=== PATIENT | female | born 1995 | race Caucasian/White ===

== ENCOUNTER 2019-12-30 16:02 | Emergency (ER) | payer BC ==
[~2019-12-30] VITALS: Ht 160 cm; Wt 54.4 kg
[2019-12-30] MEDS ORDERED: Omnipaque-300 100ml vial INJ PRN (16:15)
[2019-12-30] MEDS ORDERED: Ketorolac 30mg Inj IV ONE (16:15)
[2019-12-30 16:20] VITALS: BP 95/55
--- NOTE | 2019-12-30 16:23 | NUR ---
ED Nurse Note: Patient walked in to ER from home due to RLQ abd pain with nausea that radiates to her right groin x 1 week. Pt states diarrhea and constipation at same time. Patient stated was diagnosed with bipolar disorder, and prescribed meds. Patient AAO x4, VSS at this time.
--- NOTE | 2019-12-30 17:04 | Emergency Room Report ---
History of Present Illness General Chief Complaint: Abdominal Pain Source: Patient Present Illness HPI 24-year-old female with history of bipolar disorder currently on lamotrigine complaining of 1 week of right lower quadrant abdominal pain radiating to groin area with feeling nauseated however denies any vomiting. Reports that she used to take valproic acid in the past however was recently switched to lamotrigine and reports that it might be a side effect of her new medication. Patient reports that" about 1 week ago she felt like her pancreas and her liver were exploding because of the location of where it was hurting and she asked her doctor to change her medication to a new medication." Patient reports that she continues take lamotrigine. Denies headache and dizziness, chest pain, shortness of breath, fever and chills. Reports that she had little bit of diarrhea 1 week ago however that has resolved. Denies any bloody stool. Denies . Denies history of ovarian cyst or any dysfunctional uterine bleeding. Denies tobacco smoke, drug use, alcohol intake.Patient also reports to have some urinary frequency few days ago return urgent care has started taking ciprofloxacin x2 days. Denies hematuria. Allergies: Coded Allergies: AMOXICILLIN (Verified Allergy, Unknown, 12/30/19) COVID-19 Screening Contact w/high risk pt: No Experienced COVID-19 symptoms?: No COVID-19 Testing performed CHIEF CRUISER: No Patient History Past Medical History: see triage record Past Surgical History: none Pertinent Family History: none Last Menstrual Period: 11/11/19 Now: No - mens irregular Immunizations: UTD Reviewed Nursing Documentation: PMH: Agreed; PSxH: Agreed Nursing Documentation-PMH Past Medical History: No History, Except For Review of Systems All Other Systems: negative except mentioned in HPI Physical Exam Vital Signs Date Time Temp Pulse Resp B/P (MAP) Pulse Ox O2 Delivery O2 Flow Rate FiO2 12/30/19 16:08 98.8 89 18 95/55 (68) 96 Room Air Sp02 EP Interpretation: reviewed, normal General Appearance: no apparent distress, alert, GCS 15, non-toxic Head: normocephalic, atraumatic Eyes: bilateral eye normal inspection, bilateral eye PERRL ENT: hearing grossly normal, normal pharynx, no angioedema, normal voice Neck: full range of motion, supple/symm/no masses Respiratory: chest non-tender, lungs clear, normal breath sounds, speaking full sentences Cardiovascular #1: regular rate, rhythm, no edema Cardiovascular #2: 2+ carotid (R), 2+ carotid (L), 2+ radial (R), 2+ radial (L), 2+ dorsalis pedis (R), 2+ dorsalis pedis (L) Gastrointestinal: normal bowel sounds, non tender, soft, no mass, no organomegaly, no peritonitis, no bruit, non-distended, no guarding, no hernia, no pulsatile mass, no rebound, other - Negative McBurney's and Rovsing's, negative obturator and psoas Rectal: deferred Genitourinary: no CVA tenderness Musculoskeletal: back normal Neurologic: alert, motor strength/tone normal, oriented x3, sensory intact, responsive, speech normal Psychiatric: judgement/insight normal, memory normal, mood/affect normal, no suicidal/homicidal ideation Skin: no rash Lymphatic: no adenopathy Medical Decision Making PA Attestation All my diagnosis and treatment plans were reviewed ad discussed with my supervising physician Dr. Hutson Diagnostic Impression: Primary Impression: Appendicitis ER Course 24-year-old female with history of bipolar disorder currently on lamotrigine complaining of 1 week of right lower quadrant abdominal pain radiating to groin area with feeling nauseated however denies any vomiting. Reports that she used to take valproic acid in the past however was recently switched to lamotrigine and reports that it might be a side effect of her new medication. Patient reports that" about 1 week ago she felt like her pancreas and her liver were exploding because of the location of where it was hurting and she asked her doctor to change her medication to a new medication." Patient reports that she continues take lamotrigine. Denies headache and dizziness, chest pain, shortness of breath, fever and chills. Reports that she had little bit of diarrhea 1 week ago however that has resolved. Denies any bloody stool. Denies . Denies history of ovarian cyst or any dysfunctional uterine bleeding. Denies tobacco smoke, drug use, alcohol intake. Patient also reports to have some urinary frequency few days ago return urgent care has started taking ciprofloxacin x2 days. Denies hematuria. Ddx considered but are not limited to: appendicitis, cholecystis, gastritis, gastroenteritis, UTI, pyelonephritis, SBO, diverticulitis, influenza with GI manifestation, ruptured ovarian cyst, complication with Vital signs: are WNL, pt. is afebrile H&PE are most consistent with: possible appendicitis ORDERS: abdominal CT, abdominal pain set, EKG, zofran ED INTERVENTIONS: Toradol, Zofran, Pepcid, NS bolus CT scan read cannot distinguish between acute appendicitis of the radiologist calls with most likely not an appendicitis patient to be discharged home have a repeat CT scan pain in 2 days however she feels worse in the meantime return to the emergency room immediately. DISCHARGE: At this time pt. is stable for d/c to home. Will provide printed patient care instructions, and any necessary prescriptions. Care plan and follow up instructions have been discussed with the patient prior to discharge. Dr. Townsend was contacted and advised patient to follow-up with him tomorrow in office. EKG Diagnostic Results Rate: normal Rhythm: NSR ST Segments: no acute changes Other Impression No acute ST changes ASA given to the pt in ED: No CT/MRI/US Diagnostic Results CT/MRI/US Diagnostic Results : Imaging Test Ordered: CT abdomen pelvis with contrast Impression TECHNIQUE: Axial computed tomography images of the abdomen and pelvis with intravenous contrast. CTDI is 3.5 mGy and DLP is 175.5 mGy-cm. One or more of the following dose reduction techniques were used: automated exposure control, adjustment of the mA and/or kV according to patient size, use of iterative reconstruction technique. Coronal and sagittal reformatted images were created and reviewed. COMPARISON: No relevant prior studies available. FINDINGS: Lung bases: Unremarkable. No mass. No consolidation. ABDOMEN: Liver: Unremarkable. No mass. Gallbladder and bile ducts: Unremarkable. No calcified stones. No ductal dilation. Pancreas: Unremarkable. No mass. No ductal dilation. Spleen: Unremarkable. No splenomegaly. Adrenals: Unremarkable. No mass. Kidneys and ureters: Unremarkable. No solid mass. No hydronephrosis. Stomach and bowel: Prominent colonic stool burden could be incidental or could be a cause for pain. No obstruction. No mucosal thickening. PELVIS: Appendix: Appendix 0.6 cm diameter, with mild wall hyperemia without abscess, perforation, or appendicolith. Bladder: Unremarkable. No mass. Reproductive: Almost certainly benign left ovarian functional 3.2 cm follicular cyst requires no additional follow-up. ABDOMEN and PELVIS: Intraperitoneal space: Unremarkable. No free air. No significant fluid collection. Bones/joints: No acute fracture. No dislocation. Soft tissues: Unremarkable. Vasculature: Unremarkable. No abdominal aortic aneurysm. Lymph nodes: Unremarkable. No enlarged lymph nodes. IMPRESSION: 1. Normal caliber appendix with mild wall hyperemia of uncertain significance. This could represent normal appendiceal appearance, although in the setting of concerning findings for acute appendicitis, this could also represent early acute uncomplicated appendicitis. 2. Prominent colonic stool burden could be incidental or could be a cause for pain. 3. Otherwise no acute abnormality definitively identified to account for patient presentation. 4. Almost certainly benign left ovarian functional 3.2 cm follicular cyst requires no additional follow-up. Radiologist: Kike Watson MD Electronically Signed: 12/30/19 18:13 Last Vital Signs Date Time Temp Pulse Resp B/P (MAP) Pulse Ox O2 Delivery O2 Flow Rate FiO2 12/30/19 16:20 98.8 18 95/55 96 Room Air 12/30/19 16:20 89 Disposition: HOME, SELF-CARE Condition: Stable Scripts Ondansetron (Zofran) 4 Mg Tablet 4 MG ORAL Q6H PRN for Nausea & Vomiting, #14 TAB Prov: Gonzalo Morrow 12/30/19 Patient Instructions: Abdominal Pain, Adult Additional Instructions: CT scan read cannot distinguish between acute appendicitis of the radiologist calls with most likely not an appendicitis patient to be discharged home have a repeat CT scan pain in 2 days however she feels worse in the meantime return to the emergency room immediately. Gonzalo Morrow Dec 30, 2019 17:04
[2019-12-30 17:09] LABS: BASOPHILS % (AUTO) 1.1 % (0.0-2.0); EOSINOPHILS % (AUTO) 3.8 % (0.0-3.0); HEMATOCRIT 38.8 % (37.0-47.0); HEMOGLOBIN 13.1 G/DL (12.0-16.0); LYMPHOCYTES % (AUTO) 38.7 % (20.0-45.0); MEAN CORPUSCULAR VOLUME 85 FL (80-99); MONOCYTES % (AUTO) 7.3 % (1.0-10.0); PLATELET COUNT 211 K/UL (150-450); RED BLOOD COUNT 4.55 M/UL (4.20-5.40); RED CELL DISTRIBUTION WIDTH 12.3 % (11.6-14.8); WHITE BLOOD COUNT 5.7 K/UL (4.8-10.8)
--- NOTE | 2019-12-30 17:15 | NUR ---
ED Nurse Note: patient was taken to CT via wheelchair
[2019-12-30 17:22] LABS: ANION GAP 6 mmol/L (5-15); BLOOD UREA NITROGEN 9 mg/dL (7-18); CALCIUM 8.7 MG/DL (8.5-10.1); CARBON DIOXIDE 27 MMOL/L (21-32); CHLORIDE 107 MMOL/L (98-107); CREATININE 0.8 MG/DL (0.55-1.30); POTASSIUM 3.8 MMOL/L (3.5-5.1); SODIUM 140 MMOL/L (136-145)
[2019-12-30 17:24] LABS: APPEARANCE,URINE SLIGHTLY CLOUDY; BILIRUBIN, URINE NEGATIVE (NEGATIVE); COLOR,URINE AMBER; GLUCOSE, URINE (UA) NEGATIVE (NEGATIVE); KETONES,URINE 1+ (NEGATIVE); NITRITE,URINE NEGATIVE (NEGATIVE); PH,URINE 5 (4.5-8.0); PROTEIN,URINE 2+ (NEGATIVE); UROBILINOGEN,URINE 1 MG/DL (0.0-1.0)
[2019-12-30 17:26] LABS: ALANINE AMINOTRANSFERASE 17 U/L (12-78); ALBUMIN 3.7 G/DL (3.4-5.0); ALBUMIN/GLOBULIN RATIO 1.2 (1.0-2.7); ALKALINE PHOSPHATASE 52 U/L (46-116); ASPARTATE AMINO TRANSFERASE 20 U/L (15-37); BILIRUBIN,TOTAL 0.3 MG/DL (0.2-1.0)
[2019-12-30 17:50] LABS: LEUKOCYTE ESTERASE ,URINE 1+ (NEGATIVE)
--- NOTE | 2019-12-30 17:56 | NUR ---
ED Nurse Note: patient is back, VSS, NAD noted
--- NOTE | 2019-12-30 18:14 | Diagnostic Imaging Report ---
EXAM: CT Abdomen and Pelvis With Intravenous Contrast CLINICAL HISTORY: ABD PAIN TECHNIQUE: Axial computed tomography images of the abdomen and pelvis with intravenous contrast. CTDI is 3.5 mGy and DLP is 175.5 mGy-cm. One or more of the following dose reduction techniques were used: automated exposure control, adjustment of the mA and/or kV according to patient size, use of iterative reconstruction technique. Coronal and sagittal reformatted images were created and reviewed. COMPARISON: No relevant prior studies available. FINDINGS: Lung bases: Unremarkable. No mass. No consolidation. ABDOMEN: Liver: Unremarkable. No mass. Gallbladder and bile ducts: Unremarkable. No calcified stones. No ductal dilation. Pancreas: Unremarkable. No mass. No ductal dilation. Spleen: Unremarkable. No splenomegaly. Adrenals: Unremarkable. No mass. Kidneys and ureters: Unremarkable. No solid mass. No hydronephrosis. Stomach and bowel: Prominent colonic stool burden could be incidental or could be a cause for pain. No obstruction. No mucosal thickening. PELVIS: Appendix: Appendix 0.6 cm diameter, with mild wall hyperemia without abscess, perforation, or appendicolith. Bladder: Unremarkable. No mass. Reproductive: Almost certainly benign left ovarian functional 3.2 cm follicular cyst requires no additional follow-up. ABDOMEN and PELVIS: Intraperitoneal space: Unremarkable. No free air. No significant fluid collection. Bones/joints: No acute fracture. No dislocation. Soft tissues: Unremarkable. Vasculature: Unremarkable. No abdominal aortic aneurysm. Lymph nodes: Unremarkable. No enlarged lymph nodes. IMPRESSION: 1. Normal caliber appendix with mild wall hyperemia of uncertain significance. This could represent normal appendiceal appearance, although in the setting of concerning findings for acute appendicitis, this could also represent early acute uncomplicated appendicitis. 2. Prominent colonic stool burden could be incidental or could be a cause for pain. 3. Otherwise no acute abnormality definitively identified to account for patient presentation. 4. Almost certainly benign left ovarian functional 3.2 cm follicular cyst requires no additional follow-up. <MYCVCSECTION> Communications: 12/30/19 18:18 Call Doctor Regarding Appendicitis, called Haresh Anne MD on 12/29 18:18 (-08:00)
[2019-12-30] MEDS ORDERED: ZOFRAN4 M1 ORAL (18:25)
[2019-12-30 18:37] VITALS: BP 95/55
--- NOTE | 2019-12-30 18:38 | NUR ---
ER DISCHARGE NOTE: Patient is cleared to be discharged per ERMD, pt is aox4, on room air, with stable vital signs. pt was given dc and prescription instructions, pt was able to verbalize understanding, pt id band and iv site removed without complications. pt is able to ambulate with steady gait. pt took all belongings.
[2019-12-31] MEDS ORDERED: IBUPROFEN600 M1 ORAL (17:10)
[2019-12-31] MEDS ORDERED: KLONOPIN0.5 MG ORAL (17:15)
[2019-12-31] MEDS ORDERED: LAMICTAL25 MG ORAL (17:15)
[2019-12-31] MEDS ORDERED: CIPROFLOXACIN500 M2 ORAL (17:15)
== END 2019-12-30 18:37 | disposition home or self-care (01) ==
LOC: EMR 18:30
DX: K37 Unspecified appendicitis (principal); Z88.0 Allergy status to penicillin
CPT/HCPCS: 36415; 74177; 80053; 80307; 81003; 81025; 83690; 84484; 85025; 85610; 85730; 86850; 86900; 86901; 93005; 96361; 96374; 96375; 99284; J1885; J2405; J7030; Q9965

== ENCOUNTER 2019-12-31 14:39 | Emergency (ER) | payer BC ==
[~2019-12-31] VITALS: Ht 160 cm; Wt 54.4 kg
[~2019-12-31 14:39] MED LIST: ZOFRAN4 M1 ORAL
[2019-12-31 14:47] VITALS: BP 97/60
--- NOTE | 2019-12-31 14:57 | NUR ---
ED Nurse Note: Patient from home and walked in due to RLQ abd pain x 3 days. Patient was seen here yesterday and was diagnosed with appendicitis and was discharged. Patient came back to ED due to her abd pain getting worse. Pt is AAO x4, ambulatory with non labored breathing. Calm and cooperative.
--- NOTE | 2019-12-31 15:12 | Emergency Room Report ---
History of Present Illness General Chief Complaint: Abdominal Pain Source: Patient Present Illness HPI This patient's illness began a couple weeks ago when she was started on valproic acid for bipolar disorder. She woke up experiencing toxic effects. She fasted for 5 days after that. She was concerned about her liver and pancreas. Since Monday she has been having right lower quadrant pain. It is intermittent. She was seen and evaluated yesterday with a question of appendicitis on the CT scan. She was discharged to home and told to return on Monday if not better. She believes that she was told she has appendicitis. She been taking Tylenol and Advil intermittently. The pain is not constant. Right now she states it is 4/10. She has had intermittent bloating. The stomach is better today but yesterday it felt quite distended. She denies fevers and chills. She ate without difficulty. Patient denies dysuria. She states her last menstruation was 2 weeks ago and normal for her. She claims she is never been told she has ovarian cysts. She is moving her bowels. There is no diarrhea. She denies constipation. The patient has a history of bipolar disorder and PTSD. She denies suicidal or homicidal ideation. She is living with a roommate but the roommate left for Thanksgiving. Patient denies exposure to Covid positive contacts. No sore throat, chest pain, palpitations, shortness of breath, joint pain, rashes, dizziness, headache. This is the CT report from yesterday: 1. Normal caliber appendix with mild wall hyperemia of uncertain significance. This could represent normal appendiceal appearance, although in the setting of concerning findings for acute appendicitis, this could also represent early acute uncomplicated appendicitis. 2. Prominent colonic stool burden could be incidental or could be a cause for pain. 3. Otherwise no acute abnormality definitively identified to account for patient presentation. 4. Almost certainly benign left ovarian functional 3.2 cm follicular cyst requires no additional follow-up. Allergies: Coded Allergies: AMOXICILLIN (Verified Allergy, Unknown, 12/30/19) COVID-19 Screening Contact w/high risk pt: No Experienced COVID-19 symptoms?: No COVID-19 Testing performed REPORTER ANCHOR: No Patient History Past Medical History: see triage record, old chart reviewed, psych hx - Bipolar disorder/PTSD Social History: Denies: smoking, alcohol use, drug use Social History Narrative In [place] 1 month. Has roommate. Now: No Reviewed Nursing Documentation: PMH: Agreed; PSxH: Agreed Nursing Documentation-PMH Past Medical History: No History, Except For History Of Psychiatric Problem: Yes - bipolar Review of Systems All Other Systems: negative except mentioned in HPI Physical Exam Vital Signs Date Time Temp Pulse Resp B/P (MAP) Pulse Ox O2 Delivery O2 Flow Rate FiO2 12/31/19 14:47 98.2 66 17 97/60 (72) 100 Room Air Sp02 EP Interpretation: reviewed, normal General Appearance: well appearing, no apparent distress, GCS 15 Head: normocephalic Eyes: bilateral eye normal inspection, bilateral eye PERRL, bilateral eye EOMI ENT: other - Wearing a mask Neck: supple Respiratory: lungs clear, normal breath sounds Cardiovascular #1: regular rate, rhythm Cardiovascular #2: 2+ radial (R) Gastrointestinal: normal inspection, normal bowel sounds, no mass, non- distended, no guarding, no rebound, tenderness - Reported right lower quadrant Genitourinary: no CVA tenderness Musculoskeletal: back normal, normal range of motion, gait/station normal Neurologic: alert, oriented x3, grossly normal Psychiatric: mood/affect normal, no suicidal/homicidal ideation Skin: no rash, warm/dry Medical Decision Making Diagnostic Impression: Primary Impression: Abdominal pain Qualified Codes: R10.31 - Right lower quadrant pain Additional Impression: History of bipolar disorder ER Course Patient returns with right lower quadrant pain after receiving diagnosis of ap pendicitis yesterday. Differential includes appendicitis, urinary tract infection, constipation amongst others. Evaluation with labs and review of prior records. Patient treated with IV hydration and Toradol. The patient is requesting a CT of her abdomen however we will review labs and repeat abdominal exam to determine whether CAT scan is indicated. Clinical suspicion for troy endicitis is low. CBC with normal white count. CMP unremarkable. Urinalysis clear. Patient reexamined and pain is greatly improved. Abdomen is soft and nonsurgical. Suspicion for appendicitis is nil. Discussed findings with patient. Discussed outpatient observation. Discussed treatment plan with patient. Patient stable for outpatient observation and treatment. Laboratory Tests Test 12/31/19 15:15 12/31/19 16:28 White Blood Count 7.1 K/UL (4.8-10.8) Red Blood Count 4.38 M/UL (4.20-5.40) Hemoglobin 12.7 G/DL (12.0-16.0) Hematocrit 38.3 % (37.0-47.0) Mean Corpuscular Volume 87 FL (80-99) Mean Corpuscular Hemoglobin 29.1 PG (27.0-31.0) Mean Corpuscular Hemoglobin Concent 33.3 G/DL (32.0-36.0) Red Cell Distribution Width 12.5 % (11.6-14.8) Platelet Count 199 K/UL (150-450) Mean Platelet Volume 9.2 FL (6.5-10.1) Neutrophils (%) (Auto) 42.7 % (45.0-75.0) L Lymphocytes (%) (Auto) 43.8 % (20.0-45.0) Monocytes (%) (Auto) 7.8 % (1.0-10.0) Eosinophils (%) (Auto) 4.0 % (0.0-3.0) H Basophils (%) (Auto) 1.6 % (0.0-2.0) Prothrombin Time 11.0 SEC (9.30-11.50) Prothrombin Time INR 1.0 (0.9-1.1) Activated Partial Thromboplast Time 27 SEC (23-33) Sodium Level 141 MMOL/L (136-145) Potassium Level 4.7 MMOL/L (3.5-5.1) Chloride Level 106 MMOL/L (98-107) Carbon Dioxide Level 29 MMOL/L (21-32) Anion Gap 6 mmol/L (5-15) Blood Urea Nitrogen 5 mg/dL (7-18) L Creatinine 0.8 MG/DL (0.55-1.30) Estimated Glomerular Filtration Rate > 60 mL/min (>60) Glucose Level 91 MG/DL (74-106) Calcium Level 8.6 MG/DL (8.5-10.1) Total Bilirubin 0.3 MG/DL (0.2-1.0) Aspartate Amino Transferase (AST) 37 U/L (15-37) Alanine Aminotransferase (ALT) 20 U/L (12-78) Alkaline Phosphatase 54 U/L (46-116) Total Protein 7.3 G/DL (6.4-8.2) Albumin 3.8 G/DL (3.4-5.0) Globulin 3.5 g/dL Albumin/Globulin Ratio 1.1 (1.0-2.7) Lipase 179 U/L (73-393) Urine Color Pale yellow Urine Appearance Clear Urine pH 6 (4.5-8.0) Urine Specific [place] 1.010 (1.005-1.035) Urine Protein Negative (NEGATIVE) Urine Glucose (UA) Negative (NEGATIVE) Urine Ketones Negative (NEGATIVE) Urine Blood Negative (NEGATIVE) Urine Nitrite Negative (NEGATIVE) Urine Bilirubin Negative (NEGATIVE) Urine Urobilinogen Normal MG/DL (0.0-1.0) Urine Leukocyte Esterase 1+ (NEGATIVE) H Urine RBC 0-2 /HPF (0 - 2) Urine WBC 0-2 /HPF (0 - 2) Urine Squamous Epithelial Cells Occasional /LPF Urine Bacteria Occasional /HPF (NONE) Urine HCG, Qualitative Negative (NEGATIVE) Last Vital Signs Date Time Temp Pulse Resp B/P (MAP) Pulse Ox O2 Delivery O2 Flow Rate FiO2 12/31/19 17:17 97.9 77 20 107/65 98 Room Air Status: improved Disposition: HOME, SELF-CARE Condition: Improved Scripts Ibuprofen* (MOTRIN*) 600 Mg Tablet 600 MG ORAL Q6H PRN for FOR PAIN, #20 TAB 0 Refills Prov: Manuel Ackerman MD 12/31/19 Manuel Ackerman MD Dec 31, 2019 15:12
[2019-12-31] MEDS ORDERED: Ketorolac 30mg Inj IV ONE (15:15)
--- NOTE | 2019-12-31 15:31 | NUR ---
ED Nurse Note: Collected blood specimen then sent. Pt unable to provide urine at this time.
[2019-12-31 15:43] LABS: BASOPHILS % (AUTO) 1.6 % (0.0-2.0); HEMATOCRIT 38.3 % (37.0-47.0); HEMOGLOBIN 12.7 G/DL (12.0-16.0); LYMPHOCYTES % (AUTO) 43.8 % (20.0-45.0); MEAN CORPUSCULAR VOLUME 87 FL (80-99); MONOCYTES % (AUTO) 7.8 % (1.0-10.0); NEUTROPHILS % (AUTO) 42.7 % (45.0-75.0); PLATELET COUNT 199 K/UL (150-450); RED BLOOD COUNT 4.38 M/UL (4.20-5.40); RED CELL DISTRIBUTION WIDTH 12.5 % (11.6-14.8); WHITE BLOOD COUNT 7.1 K/UL (4.8-10.8)
[2019-12-31 15:55] LABS: ANION GAP 6 mmol/L (5-15); BLOOD UREA NITROGEN 5 mg/dL (7-18); CALCIUM 8.6 MG/DL (8.5-10.1); CARBON DIOXIDE 29 MMOL/L (21-32); CHLORIDE 106 MMOL/L (98-107); CREATININE 0.8 MG/DL (0.55-1.30); POTASSIUM 4.7 MMOL/L (3.5-5.1); SODIUM 141 MMOL/L (136-145)
[2019-12-31 16:00] LABS: ALANINE AMINOTRANSFERASE 20 U/L (12-78); ALBUMIN 3.8 G/DL (3.4-5.0); ALBUMIN/GLOBULIN RATIO 1.1 (1.0-2.7); ALKALINE PHOSPHATASE 54 U/L (46-116); ASPARTATE AMINO TRANSFERASE 37 U/L (15-37); BILIRUBIN,TOTAL 0.3 MG/DL (0.2-1.0)
[2019-12-31 16:40] LABS: APPEARANCE,URINE CLEAR; BILIRUBIN, URINE NEGATIVE (NEGATIVE); COLOR,URINE PALE YELLOW; GLUCOSE, URINE (UA) NEGATIVE (NEGATIVE); KETONES,URINE NEGATIVE (NEGATIVE); LEUKOCYTE ESTERASE ,URINE 1+ (NEGATIVE); NITRITE,URINE NEGATIVE (NEGATIVE); PH,URINE 6 (4.5-8.0); PROTEIN,URINE NEGATIVE (NEGATIVE); UROBILINOGEN,URINE NORMAL MG/DL (0.0-1.0)
[2019-12-31 16:45] VITALS: BP 102/75
[2019-12-31] MEDS ORDERED: IBUPROFEN600 M1 ORAL (17:10)
[2019-12-31] MEDS ORDERED: KLONOPIN0.5 MG ORAL (17:15)
[2019-12-31] MEDS ORDERED: CIPROFLOXACIN500 M2 ORAL (17:15)
[2019-12-31] MEDS ORDERED: LAMICTAL25 MG ORAL (17:15)
[2019-12-31 17:17] VITALS: BP 107/65
== END 2019-12-31 17:17 | disposition home or self-care (01) ==
LOC: EMR 15:00
DX: R10.31 Right lower quadrant pain (principal); F31.9 Bipolar disorder, unspecified; Z88.1 Allergy status to other antibiotic agents
CPT/HCPCS: 36415; 80053; 81003; 81025; 83690; 85025; 85610; 85730; 96361; 96374; 99284; J1885; J7030